=== PATIENT | female | born 1970 | race Two or more races ===

== ENCOUNTER 2018-08-12 04:31 | Inpatient (IN) | payer OTHER ==
[2018-08-12] MEDS ORDERED: ONDANSETRON 4 MG/2 ML VIAL IVP ONE (04:56)
[2018-08-12] MEDS ORDERED: NS 1,000 ML IV ONE (04:56)
[2018-08-12] MEDS ORDERED: ONDANSETRON 4 MG/2 ML VIAL ONE (04:56)
[2018-08-12] MEDS ORDERED: KETOROLAC 15 MG/1 ML SDV ONE (05:10)
[2018-08-12] MEDS ORDERED: KETOROLAC 15 MG/1 ML SDV IVP ONE (05:11)
[2018-08-12] MEDS ORDERED: HYDROmorphONE/DILAUDID 2 MG/ML INJ IVP ONE (05:30)
[2018-08-12] MEDS ORDERED: IOPAMIDOL (ISOVUE 370) 100 ML BTL IV ONE (05:35)
[2018-08-12 06:55] LABS: PLATELET COUNT 275 10^3/uL (150-400)
[2018-08-12 07:03] LABS: INR 1.06 (0.83-1.16)
--- NOTE | 2018-08-12 07:26 | EDPHY ---
H & P Stated Complaint: headache, vomiting Time Seen by Provider: 08/12/18 05:11 HPI/ROS: History obtained using Czech video interpretation. HPI The patient presents with headache which began at midnight tonight while she was at rest though had not fallen asleep yet. The headache began in her bifrontal region and was dull initially though now has become more stabbing in nature. It started suddenly and has been constant ever since, she rates it as severe. She took a dose of ibuprofen without any improvement in her pain. She reports nausea. She also has photophobia and phonophobia. She says this feels similar to when she had an aneurysmal bleed about 13 years ago. At that time she reports some sort of neuro surgical procedure though not sure what by Dr. Dyer. She has not had any complications from this. REVIEW OF SYSTEMS 10 systems were reviewed and negative with the exception of the elements mentioned in the history of present illness. 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 Soc Hx: Here with her family PHYSICAL General Appearance: Alert, no distress Eyes: Pupils equal and round no pallor or injection ENT, Mouth: Mucous membranes moist Respiratory: There are no retractions, lungs are clear to auscultation Cardiovascular: Regular rate and rhythm Gastrointestinal: Abdomen is soft and non-tender, no masses, bowel sounds normal Neurological: A&O x3, cranial nerves 2-12 intact, 5/5 strength in upper and lower extremities which is symmetric, normal finger to nose and heel to olea testing Skin: Warm and dry, no rashes Musculoskeletal: Neck is supple non tender Extremities: symmetrical, full range of motion Psychiatric: Patient is oriented X 3, there is no agitation Source: Patient, Family Exam Limitations: No limitations - Personal History LMP (Females 10-55): 8-14 Days Ago - Medical/Surgical History Hx Asthma: No Hx Chronic Respiratory Disease: No Hx Diabetes: No Hx Cardiac Disease: No Hx Renal Disease: No Hx Cirrhosis: No Hx Alcoholism: No Hx HIV/AIDS: No Hx Splenectomy or Spleen Trauma: No Other PMH: diabetic, hypertension. brain surgery 13 year ago, aneurysm? - Social History Smoking Status: Never smoked Constitutional: Initial Vital Signs Temperature (C) 36.5 C 08/12/18 04:37 Heart Rate 98 08/12/18 04:37 Respiratory Rate 20 08/12/18 04:37 Blood Pressure 132/77 H 08/12/18 04:37 O2 Sat (%) 96 08/12/18 04:37 O2 Delivery Mode Nasal Cannula O2 (L/minute) 2 Allergies/Adverse Reactions: No Known Allergies Allergy (Unverified 08/12/18 04:36) Home Medications: Medication Instructions Recorded Atorvastatin Calcium 08/12/18 Metformin HCl 08/12/18 Medical Decision Making - Diagnostics Imaging Results: CT of head and CTA of head demonstrate new subarachnoid hemorrhage centered around the right basal cisterns and sylvian fissure on the 4th ventricle with developing hydrocephalus with edema and early herniation, 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 Shirley of Radiology. Imaging: Discussed imaging studies w/ bar host/hostess Radiologist Differential Diagnosis: 48-year-old female with prior history of aneurysmal bleed presents now with severe headache, photophobia. Her neurologic exam is normal. Patient was given medication for pain. CT and CTA of head were performed which demonstrated recurrent aneurysmal bleed with edema on hydrocephalus. I consulted with the on-call neurosurgeon Dr. Whiteside who will see the patient later this morning. I will plan to admit the patient to the ICU. I have discussed the diagnosis and plan for consultation with the patient and her family at the bedside. I have answered their questions. Patient's blood pressure remained normal, blood pressure goals are for systolic less than 130. Differential diagnosis includes subarachnoid hemorrhage, intracranial hemorrhage , migraine-type headache. - Data Points Laboratory Results: 08/12/18 05:52 POC Creatinine 0.4 mg/dL L mg/dL (0.6-1.0) Medications Given: Discontinued Medications Hydromorphone HCl (Dilaudid) 0.5 mg IVP EDNOW ONE Stop: 08/12/18 05:31 Last Admin: 08/12/18 05:37 Dose: 0.5 mg Sodium Chloride (Ns) 1,000 mls @ 0 mls/hr IV EDNOW ONE; Wide Open PRN Reason: Protocol Stop: 08/12/18 04:57 Last Admin: 08/12/18 04:58 Dose: 1,000 mls Ketorolac Tromethamine (Toradol) 15 mg IVP EDNOW ONE Stop: 08/12/18 05:12 Last Admin: 08/12/18 05:11 Dose: 15 mg Ondansetron HCl (Zofran) 4 mg IVP EDNOW ONE Stop: 08/12/18 04:57 Last Admin: 08/12/18 04:58 Dose: 4 mg Point of Care Test Results: Chemistry 08/12/18 05:52 POC Creatinine 0.4 mg/dL L mg/dL (0.6-1.0) Departure - Departure Disposition: [facility] Acute Clinical Impression: Subarachnoid hemorrhage, Aneurysm of posterior communicating artery Condition: Fair Referrals: Sruthi Luther DO [Primary Care Provider] - As per Instructions
[2018-08-12] MEDS ORDERED: hydrALAZINE 20 MG/ML VIAL IVP PRN (08:13)
[2018-08-12] MEDS ORDERED: HYDROCODONE/APAP 5/325 TAB PO PRN (08:22)
[2018-08-12] MEDS ORDERED: ACETAMINOPHEN 325 MG TAB PO PRN (08:22)
[2018-08-12] MEDS ORDERED: ONDANSETRON 4 MG/2 ML VIAL IVP PRN (08:25)
[2018-08-12] MEDS ORDERED: ONDANSETRON DISINTEGRATING 4 MG TAB PO PRN (08:25)
[2018-08-12] MEDS ORDERED: niCARdipine/NACL 200 ML IV SCH (08:30)
--- NOTE | 2018-08-12 10:03 | GHP ---
DATE OF ADMISSION: 08/12/2018 CHIEF COMPLAINT: Severe sudden headache. HISTORY OF PRESENT ILLNESS: The patient is a 48-year-old Taiwanese-speaking primarily female with a hi story of a right-sided PCOM aneurysmal rupture in 2004, that was clipped by Dr. Gurjit Sorenson. She has not had a followup in sometime and last evening while awake, but trying to sleep, she had a s udden severe headache and came into the [facility] to be evaluated. Her headache has sub sided since then, but is still present at approximately 1 to 2/10 level. She does have some mild ace to and phonophobia as well. It does feel similar, but is at severe to the headache she had when she bled 13 years ago. She is here with her and her daughter who is fluent in Canadian. PAST MEDICAL/SURGICAL HISTORY: Per HPI, history of diabetes, hypertension, and right-sided pterional craniotomy for aneurysm clipping of a PCOM artery aneurysm. CODE STATUS: Full. ALLERGIES: None. SOCIAL HISTORY: with a daughter. Denies alcohol, tobacco, or drug abuse. FAMILY HISTORY: Reviewed, but no history of any other aneurysmal bleed in her family members. REVIEW OF SYSTEMS: Ten points reviewed and are as stated in HPI. PHYSICAL EXAM: VITAL SIGNS: Temperature afebrile at 36.5, heart rate 98, blood pressure 132/77, res piratory rate 20, saturating 96% on 2 L nasal cannula. NEUROLOGIC: The patient is awake, alert, and oriented x3. She appears stated age. She is in mild discomfort. She has fluent speech in Taiwanese. She has normal cranial nerves. 5/5 in all extremities without a pronator drift. No focality to he r exam. Normal sensation to light touch and pinprick. Normal reflexes. No Pruett's, clonus, or Ba binski sign detected. No cerebellar findings. Gait is deferred. Old right-sided pterional incision well healed with some mild temporalis wasting present. LABORATORY/IMAGING: White blood cells 12.3, hemoglobin 12.7, platelet count 275. INR 1.06, PTT 24.6 . Sodium 137, potassium 3.8, BUN 17, creatinine 0.5, glucose 223. I reviewed the patient's noncontrasted head CT and CT-A and appreciate a basilar cisternal subarachno id hemorrhage consistent with aneurysmal rupture with the majority of the blood on the right side con sistent with her PCOM artery aneurysm on that side. The PCOM artery does not appear to be futile, an d there is evidence of an old clip, but it has certainly recurred and is quite sizable, very mildly e levated ventricular size. IMPRESSION/PLAN: A 48-year-old female with hypertension, diabetes, and history of a ruptured right p osterior communicating artery aneurysm 13 years ago that was clipped by Dr. 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 She has a very good Simms-Cueva grade at 1. Her headaches are at t his point improved from when they began and are not severe. Her aneurysmal recurrence is sizable and does need to be treated. I will admit her to the ICU today for strict blood pressure control less than 130 systolic, to initia te Nimotop, and for neuro checks. She can eat today and get out of bed with assistance. I already s poke with my partner, Dr. Juan Parker, who is a cerebrovascular specialist and he plans to treat her tomorrow. /[id number]/MODL
[2018-08-12] MEDS: niMODipine 30 MG CAP PO SCH ×4 (10:18→21:44)
--- NOTE | 2018-08-12 12:59 | GCON ---
CRITICAL CARE CONSULTATION DATE OF CONSULTATION: 08/12/2018 REASON FOR CONSULTATION: Subarachnoid hemorrhage associated with recurrent cerebral aneurysm. HISTORY: Patient is a very pleasant 48-year-old woman who had a previous aneurysm and clipping in 25 03. She did well following that procedure. Last night while trying to sleep, she developed a sudden severe headache that felt like her headache with her original subarachnoid hemorrhage. She presente d to the emergency department. Headache was improving. CT angiogram of the head showed a basilar ci sternal subarachnoid hemorrhage. and probable recurrence of the posterior communicating artery aneury sm. She was admitted to the intensive care unit for blood pressure control and pain management. She has been stable since admission. PAST MEDICAL HISTORY: Remarkable for systemic hypertension, diabetes, and previous subarachnoid hemo rrhage and aneurysm. MEDICATIONS: On admission, includedLipitor and metformin. She is also on a control medication . SOCIAL HISTORY: The patient is with a supportive family. Alcohol and tobacco are negative. FAMILY HISTORY: Noncontributory. REVIEW OF SYSTEMS: A 10-point review of systems is negative, except as outlined above. She denies h eart disease, lung disease, or other problems. DRUG ALLERGIES: No known drug allergies. PHYSICAL EXAMINATION: GENERAL: Reveals a pleasant woman who is sitting looking comfortable in bed. She is in no distress. Her headache is mild at this point in time. She denies any neurologic sympt oms. VITAL SIGNS: Blood pressure is 120/64, heart rate 80 with sinus rhythm on the monitor. Respir atory rate is 14. On 2 L saturations are 98%. She is afebrile. NECK: Unremarkable for lymphadenop athy or thyromegaly. There is no jugular venous distention. CHEST: Clear bilaterally. Excursions are normal. HEART: Regular in rate and rhythm without significant murmur or gallop. ABDOMEN: Soft , nontender. Bowel sounds are present. There is no organomegaly. EXTREMITIES: Without edema, cord s, or tenderness. NEUROLOGIC: Intact. There are no cranial nerve findings. She moves all extremit ies equally with good strength and reports normal sensation. Mentation is intact. DATABASE: Radiologic studies are as outlined above. White blood cell count is 12,300, hematocrit 37, platelets 275,000. PT and PTT were normal on admiss ion, as was her basic metabolic panel with the exception of an elevated glucose at 223. ASSESSMENT: 1. Subarachnoid hemorrhage. This is recurrent, probably from the same posterior communicating aneur ysm as it was previously. Her presenting symptom is headache. This has improved since its onset and she is currently doing well and is stable regarding pain issues. Blood pressure is well controlled. She is on nimodipine and has a nicardipine drip ordered, as well as p.r.n. hydralazine. 2. History of type 2 diabetes. Blood sugars are mildly elevated, acceptable. No therapy is indicat ed at this time. Sugars will be followed. 3. Hypertension. She does have a history of systemic hypertension, which appears to be quite mild. She was on no medications at home. Blood pressure is being controlled actively here. Neurosurgery requests a systolic of 130 or less. Appropriate medications are ordered. If needed, carvedilol coul d be added to her regimen. 4. Metabolic. No issues identified. 5. Prophylaxis. Gastrointestinal, she is eating. Deep venous thrombosis, sequential compression de vices only. PLAN AND RECOMMENDATIONS: The patient will be kept in the intensive care unit with systolic blood pr essure controlled under 130. Appropriate pain management will be maintained. Neurologic status will be followed closely. Surgical intervention will be needed and Dr. Parker will fully evaluate the pat ient in the morning. Further plans and recommendations will be made based on her progress over the next 12-24 hours. /[id number]/MODL
--- NOTE | 2018-08-12 13:23 | ASMTCMCOM ---
CM Note CM Note Notes: Reviewed chart. Pt presented to the Emergency Department with a severe headache (sudden onset). History includes a brain aneurysm with craniotomy approximately 13 yrs ago, DM and HTN. Pt is Luxembourgish speaking only. She is and lives independently with her spouse. She has one daughter. Pt was admitted for further evaluation and treatment of a subarachnoid hemorrhage with recurrent aneurysm. Discharge needs remain unclear at this time. Surgery/intervention and PT/OT evals pending. CM will continue to follow. Discharge Plan: To be determined Date Signed: 08/12/2018 01:22 PM Electronically Signed By:Perla Dalton RN
[2018-08-12] MEDS: NS 1,000 ML IV SCH (15:59)
--- NOTE | 2018-08-12 18:14 | PDMN ---
Medical Necessity Medical necessity: MCG: M79 SAH non surgical 4days: basilar cisternal SAH consistent with aneurysmal rupture
[2018-08-13] MEDS: niMODipine 30 MG CAP PO SCH ×3 (02:08→12:06)
[2018-08-13] MEDS: NS 1,000 ML IV SCH (05:50)
[2018-08-13] MEDS ORDERED: HYDROmorphONE/DILAUDID 1 MG/ML INJ IVP ONE (09:30)
--- NOTE | 2018-08-13 09:36 | NEUSURGPN ---
Assessment/Plan: Assessment: 48 yr old F with history of clipping of pcomm aneurysm 10 years ago , now with rupture/recurrence Hunt[place] I. Plan: -Neuro-awake and alert, headache -Q1hr neuro checks -Keep SBP 90-130 -Nimotop -Patient is NPO, Dr Parker will take patient for angiogram today for treatment -Consent signed at bedside with patient, and tube drawing supervisor -Discussed patient with Gillian Parker and Niru, Dr Parker will patient today as well Please call neurosurgery with any questions/concerns Subjective: headache, no other complaints Objective: AxO x3 CN 2-12 grossly intact PERRLA EOMI NEGRETE x4 5/5 BUE, BLE Neuro Check Frequency: per routine Urinary Catheter in Place: No - Physician Discussed Patient with Dr.: Parker Patient Seen by : Elena Neurosurgery Physical Exam - Vitals, I&O, Labs I and O 08/12/18 08/13/18 08/14/18 05:59 05:59 05:59 Intake Total 3021 Output Total 1200 Balance 1821 Weight 67.7 kg Intake: Oral (ml) 1050 IV Infused (ml) 1971 Ns 1,000 ml @ 70 mls/hr 971 IV CONT ALFREDO Rx#: [id number] Output: Emesis (ml) 1200 Other: Number of Voids Toilet 2 Number of Emesis 1 Occurrences Vital Signs Temp Pulse Resp BP Pulse Ox 37 C 85 15 128/70 H 96 08/13/18 08:00 08/13/18 08:00 08/13/18 08:00 08/13/18 08:00 08/13/18 08:00 ICD10 Worksheet Patient Problems: Problems Problem Status Onset Aneurysm of posterior communicating artery Acute Subarachnoid hemorrhage Acute
[2018-08-13 12:12] VITALS: BP 133/62
--- NOTE | 2018-08-13 12:21 | GDS ---
ADMITTING DIAGNOSIS: Subarachnoid hemorrhage. HOSPITAL COURSE: The patient was admitted to the hospital on 08/12/2018, after having the worst head ache of her life. Historically, she had a subarachnoid hemorrhage in 2004, and had a clip ligation o f a right posterior communicating artery aneurysm at that time. Apparently, since that time, her fol lowup has been minimal, and it is not exactly clear when she last had imaging. She had a CT scan diane wing diffuse subarachnoid hemorrhage in the basilar cisterns with a Diaz grade of 3, and a subseque nt CT angiogram, which revealed recurrence of the right posterior communicating artery aneurysm, whic h measures about 7 x 6.5 mm. The aneurysm appears to have a relatively narrow neck, although it is v gabriel difficult to classify the posterior communicating artery on this imaging. [facility] with good blood pressure control, which has remained in the 120s. She was started on nimodipin e, and although she had very mild hydrocephalus on the CT scan, has not required any ventriculostomy placement. She remains with an exam of awake, alert, and oriented. She is Paraguayan-speaking only. S he follows commands briskly in all 4 limbs with good strength in all muscle groups. Sensation is int act. Cranial nerves are normal. She was planned to have her aneurysm treated with angiography and coil embolization this morning. Ho bill, the biplane angiography suite is mechanically down and we are not able to adequately treat her at this time. Therefore, I called down to [facility], who had agreed to accept the patient and she can be treated at that facility. DISCHARGE MEDICATIONS: 1. Tylenol. 2. Hydralazine. 3. Nicardipine. 4. Nimodipine 60 mg q.4 hours. 5. Zofran p.r.n. 6. Dilaudid p.r.n. DISCHARGE INSTRUCTIONS: The patient is being transferred to another hospital for aneurysm treatment. She will receive final discharge instructions from this facility, but would be welcome to follow up with me in the clinic here in [place] if the family would prefer. /[id number]/MODL
== END 2018-08-13 12:50 | disposition short-term general hospital (02) | DRG 66 ==
LOC: F2N 08:31
PROVIDERS: ADMIT Neurological Surgery; ATTEND Neurological Surgery
DX: I60.31 Nontraumatic subarachnoid hemorrhage from right posterior communicating artery (principal); E86.9 Volume depletion, unspecified; I10 Essential (primary) hypertension; E11.9 Type 2 diabetes mellitus without complications
CPT/HCPCS: 82565-PO; 96374; J1170; J1885; J2405; Q9967